=== PATIENT | female | born 1960 | race Caucasian/White ===

== ENCOUNTER → 2017-12-06 | Outpatient (CLI) | payer BC ==
--- NOTE | 2017-12-06 16:49 | P.HPBAR ---
Bariatric H&P - History & Physicial H&P Date: 12/06/17 History & Physicial: Visit/CC: Patient initial contact: Initial weight: 113.398 kg Initial weight in pounds: Height: Initial BMI: Last weight: Current weight: Current weight in pounds: Current BMI: [place] body weight (based on NIH guidelines): Excess body weight loss: The patient is a 57 year-old F who presents for Bariatric Assessment. The patient presents today for LAP-BAND follow-up. She has complaints of GERD and dysphagia. She is requesting a band to be emptied. Past Medical History Past Medical History: GERD/Reflux, Hyperlipidemia, Hypertension, Thyroid Disorder Additional Past Medical History / Comment(s): hypothyroid, arthritis knees History of Any Multi-Drug Resistant Organisms: None Reported Past Surgical History: Bariatric Surgery, Cholecystectomy, Hysterectomy, Orthopedic Surgery, Tubal Ligation Additional Past Surgical History / Comment(s): lap band, right foot jacque/screws in place, stapes bone removed from ear, Past Anesthesia/Blood Transfusion Reactions: No Reported Reaction Smoking Status: Never smoker Surgical - Exam - General well developed, no distress - Eyes PERRL - ENT normal pinna - Neck no masses - Respiratory normal expansion - Abdomen Abdomen: soft, non tender Bariatric Assessment & Plan Plan: Patient LAP-BAND was empty. 2.3 mL was removed from her band. She currently is 0 mL in the band. She will follow-up in one month. Bariatric Checklist Checklist: Plan: Checklist: EGD: 1. Hiatal hernia: 2. H. Pylori: HgbA1c: Vitamin D: Smoking: Never smoker Primary care physician referral: Psychiatry clearance: Cardiology clearance: Sleep study: Diet journal: VTE risk score: VTE risk level: Rehab needs at discharge:
[2017-12-06 17:08] VITALS: BP 122/78; PULSE 96; TEMP 98.2; BMI 37.0
== END | disposition home or self-care (01) ==
LOC: BARWHC3 14:21
PROVIDERS: ATTEND Surgery
DX: Z46.51 Encounter for fitting and adjustment of gastric lap band (principal); K21.9 Gastro-esophageal reflux disease without esophagitis; E78.5 Hyperlipidemia, unspecified; I10 Essential (primary) hypertension; M17.0 Bilateral primary osteoarthritis of knee; Z98.84 Bariatric surgery status; Z90.49 Acquired absence of other specified parts of digestive tract; Z98.890 Other specified postprocedural states; Z98.51 Tubal ligation status
CPT/HCPCS: 99212

== ENCOUNTER → 2018-10-10 | Outpatient (CLI) | payer BC ==
[2018-10-10 16:33] VITALS: BP 174/87; PULSE 74; RESP 16; TEMP 98; BMI 38.1
--- NOTE | 2018-10-14 11:26 | P.HPBAR ---
Bariatric H&P - History & Physicial H&P Date: 10/10/18 History & Physicial: Visit/CC: band adj Patient initial contact: Initial weight: 113.398 kg Initial weight in pounds: 250.00 Height: 5 ft 2.5 in Initial BMI: 44.9 Last weight: Current weight: 96.162 kg Current weight in pounds: 212.00 Current BMI: 38.1 [place] body weight (based on NIH guidelines): 51.029 kg Excess body weight loss: 27.6% The patient is a 58 year-old F who presents for Bariatric Assessment. Patient presents today for LAP-BAND adjustment. She is requesting a fill of her band. She has gained weight since her band was emptied. Past Medical History Past Medical History: GERD/Reflux, Hyperlipidemia, Hypertension, Thyroid Disorder Additional Past Medical History / Comment(s): hypothyroid, arthritis knees History of Any Multi-Drug Resistant Organisms: None Reported Past Surgical History: Bariatric Surgery, Cholecystectomy, Hysterectomy, Orthopedic Surgery, Tubal Ligation Additional Past Surgical History / Comment(s): lap band, right foot jacque/screws in place, stapes bone removed from ear, Past Anesthesia/Blood Transfusion Reactions: No Reported Reaction Past Psychological History: No Psychological Hx Reported Smoking Status: Never smoker Past Alcohol Use History: Occasional Past Drug Use History: None Reported Surgical - Exam Vital Signs Temp Pulse Resp BP 98 F 74 16 174/87 10/10/18 16:29 10/10/18 16:29 10/10/18 16:29 10/10/18 16:29 - General well developed, well nourished - Abdomen Abdomen: soft, non tender Bariatric Assessment & Plan Plan: Patient LAP-BAND was just. She had 1.5 mL added to her band. She will follow- up in 4 weeks. Bariatric Checklist Checklist: Plan: Checklist: EGD: 1. Hiatal hernia: 2. H. Pylori: HgbA1c: Vitamin D: Smoking: Never smoker Primary care physician referral: Psychiatry clearance: Cardiology clearance: Sleep study: Diet journal: VTE risk score: VTE risk level: Rehab needs at discharge:
== END | disposition home or self-care (01) ==
LOC: BARWHC3 14:56
PROVIDERS: ATTEND Surgery
DX: Z46.51 Encounter for fitting and adjustment of gastric lap band (principal)
CPT/HCPCS: 99212